=== PATIENT | male | born 1995 | race Caucasian/White ===

== ENCOUNTER 2022-06-13 20:36 | Emergency (ER) | payer OTHER ==
[~2022-06-13] VITALS: Ht 172.7 cm; Wt 79.7 kg
[2022-06-13] MEDS ORDERED: DOXYCYCLINE HYCLATE 100MG TABLET PO ONE (23:50)
[2022-06-13] MEDS ORDERED: DOXY-443 PO (23:53)
[2022-06-14 00:17] VITALS: BP 121/65
== END 2022-06-14 00:19 | disposition home or self-care (01) ==
LOC: M ED 20:36
DX: N49.2 Inflammatory disorders of scrotum (principal)